=== PATIENT | female | born 1990 | race Caucasian/White ===

== ENCOUNTER 2017-08-05 06:00 | Inpatient (IN) ==
[2017-08-05] MEDS ORDERED: METHYLERGONOVINE 0.2 MG/ML INJECTION IM PRN (06:54)
[2017-08-05] MEDS ORDERED: MAG-AL + SIM ORAL LIQUID 30ml PO PRN ×2 (06:54→16:37)
[2017-08-05] MEDS ORDERED: ACETAMINOPHEN 500 MG TABLET PO PRN ×2 (06:54→16:37)
[2017-08-05] MEDS ORDERED: LIDOCAINE 1% (10mg/ml) 2mL INJ PF SDV ID PRN (06:54)
[2017-08-05] MEDS ORDERED: CALCIUM CARBONATE Chewable 500mg TABLET PO PRN ×2 (06:54→16:37)
[2017-08-05] MEDS ORDERED: CARBOPROST 250 MCG/ML INJECTION IM PRN (06:54)
[2017-08-05 07:13] VITALS: BMI 23.5
[2017-08-05] MEDS: LR 1,000 ML IV PRN ×2 (07:18→10:14)
[2017-08-05] MEDS ORDERED: OXYTOCIN DRIP 30 UNIT/500 ML ML IV PRN (07:30)
[2017-08-05] MEDS ORDERED: D5LR 1,000 ML IV PRN (07:30)
[2017-08-05] MEDS ORDERED: ONDANSETRON 4 MG/2 ML INJECTION IVP PRN (10:50)
[2017-08-05] MEDS ORDERED: ROPIVACAINE 1% 10MG/ML INJ 200 MG, SUFentanil 50 MCG in NS 100 ML EPI PRN (10:50)
[2017-08-05] MEDS ORDERED: DiphenhydrAMINE 50 MG/ML INJECTION IVP PRN (10:50)
[2017-08-05] MEDS ORDERED: NALOXONE 0.4 MG/ML INJECTION IVP PRN (10:50)
--- NOTE | 2017-08-05 10:50 | Anesthesia Preoperative Report ---
Anesthesia Epidural/Spinal Rec - Date and Time Date: 08/05/17 Procedure: Labor Epidural Plan: Epidural - Vital Signs Vital Signs: Temperature 97.5 F 08/05/17 07:00 Pulse Rate 93 08/05/17 07:00 Respiratory Rate 16 08/05/17 07:00 Blood Pressure 118/61 08/05/17 07:00 /Para: P:1 - Medictaions & Allergies Inpatient Medications: Current Medications Acetaminophen (Tylenol) 500 - 1,000 mg PO Q4H PRN PRN Reason: Pain Al Hydroxide/Mg Hydroxide (Maalox Plus) 30 ml PO Q3H PRN PRN Reason: Indigestion Calcium Carbonate (Tums) 500 - 1,000 mg PO Q2H PRN PRN Reason: Indigestion Carboprost Tromethamine (Hemabate) 250 mcg IM O PRN PRN Reason: .Downtime Lactated Ringer's (Lactated Ringers) 1,000 mls @ 999 mls/hr IV .Q1H1M PRN Last Admin: 08/05/17 10:14 Dose: 999 mls/hr Oxytocin (Pitocin Drip) 30 unit in 500 mls @ 2 mls/hr IV .Q24H PRN; Protocol PRN Reason: Induction/Augmentation Last Admin: 08/05/17 07:20 Dose: 2 mls/hr Dextrose/Lactated Ringer's (Dextrose 5%-Lactated Ringers) 1,000 mls @ 125 mls/ hr IV .Q8H PRN PRN Reason: Labor Last Admin: 08/05/17 07:21 Dose: 125 mls/hr Lidocaine HCl (Xylocaine-Mpf 1% Vial) 0.2 mg ID O PRN PRN Reason: IV Start Methylergonovine Maleate (Methergine) 0.2 mg IM O PRN Misoprostol (Cytotec) 800 mcg OH ONCE PRN Allergies/Adverse Reactions: Allergies Allergy/AdvReac Type Severity Reaction Status Date / Time Penicillins Allergy Unknown Verified 08/05/17 07:35 - Home Medications Home Medications: Home Medications Medication Instructions Recorded Confirmed Type Vit No.130/Iron/Folic 1 tab PO DAILY #0 tab 08/16/14 08/05/17 History [ Tablet] Iron 07/20/17 History - Medical History Respiratory: DENIES: Asthma, Sleep Apnea Cardiovascular: DENIES: Angina, Hypertension Gastrointestional: DENIES: Gastroesophageal Reflux Disease Neuro/Musculoskeletal: Denies: Neuromuscular Disorder Renal/Endocrine: DENIES: Diabetes Mellitus Type 2 Other History: DENIES: Anesthesia Reactions - Surgical History Anesthesia Reactions: None Hx Family Anesthesia Reaction: No History of Motion Sickness: No - Social History Second Hand Exposure: No Substance Use Type: does not use Hx Chewing Tobacco Use: No - Pertinent Findings Lab Data: CBC and BMP 08/05/17 07:10 - Physical Exam Respiratory Exam: lungs clear Cardiovascular Exam: regular rate and rhythm - Airway Assessment Mallampati Score: I TMD: 3 Fingerbreadths Neck Extension: good Overall Assessment: may be difficult mask vent, may be difficult intubation - ASA ASA Score: 2 - Discussion Discussion: Discussed risks/options/alternatives of anesthesia and questions answered. Patient consents. Nursing pain assessment noted. Anesthesia Discussion: family member Attestation Statement: Prior to the delivery of any anesthetic medication, I examined the patient, developed the plan, obtained the patient's consent and discussed the risk and benefits of the procedure with the patient/guardian.
[2017-08-05] MEDS ORDERED: DiphenhydrAMINE 25 MG CAPSULE PO PRN (16:37)
[2017-08-05] MEDS ORDERED: HYDROCORTISONE 2.5% CREAM 30gm RECTALLY PRN (16:37)
[2017-08-05] MEDS ORDERED: SALINE FLUSH 10ml SYRINGE IV PRN (16:37)
[2017-08-05] MEDS ORDERED: OXYTOCIN DRIP 30 UNIT/500 ML ML IV SCH (16:37)
--- NOTE | 2017-08-05 17:08 | Labor and Delivery Note ---
DATE 08/05/2017 Ms. Maza progressed very well in first stage of labor. At complete and +2 station, she pushed over the course of two contractions delivering the head in the OA presentation. There was no evidence of nuchal cord. Baby was bulb suctioned on the perineum prior to delivery. Baby was then further bulb suctioned after delivery and placed on mother's abdomen. After about two and a half, minutes the cord was doubly clamped. It was then cut by the baby's father Tolu. This is a liveborn female with Apgars of 8/9/9. She weighed 8 pounds, 2.6 ounces. In a few moments, the placenta delivered spontaneously, intact. It had a normal configuration and a normal-appearing three-vessel cord. There was a superficial left introitus laceration that was repaired with three stitches of 3-0 Vicryl. Total blood loss was approximately 300 mL. At the time of this dictation, mother and baby are doing well. FLACA
[2017-08-05] MEDS: IBUPROFEN 800 MG TABLET PO SCH (17:28)
[2017-08-05] MEDS: HYDROCODONE/APAP 5mg/325mg TABLET PO PRN (18:59)
--- NOTE | 2017-08-05 19:05 | Anesthesia Postoperative Note ---
- Date and Time Date: 08/05/17 Time: 19:04 - Status Patient Participated in Evaluation: Patient Participated in Person Vital Signs: Temperature 97.5 F 08/05/17 07:00 Pulse Rate 93 08/05/17 07:00 Respiratory Rate 16 08/05/17 07:00 Blood Pressure 118/61 08/05/17 07:00 Respiratory Function: Airway Patent Cardiovascular Function: Regular Pulse EKG: Sinus Rhythm Mental Status: Alert and Oriented Pain Intensity: 0 Hydration: Taking PO Fluids Complications During Recover: None Apparent - Follow-Up Instructions Instructions: Per Surgeon
[2017-08-06 01:35] VITALS: O2SAT 98
[2017-08-06] MEDS: HYDROCODONE/APAP 5mg/325mg TABLET PO PRN (05:40)
[2017-08-06 06:05] VITALS: RESP 16
[2017-08-06] MEDS: IBUPROFEN 800 MG TABLET PO SCH ×2 (06:10→12:13)
[2017-08-06] MEDS ORDERED: FERROUS SULFATE 324 MG TABLET PO SCH (08:00)
--- OUTSIDE RECORDS SUMMARY | 2017-08-06 08:40 | External Medical Summary | Continuity of Care Document ---
:1990 Author Organization [facility] Address [address] [place], [place] [address] Phone Allergies, Adverse Reactions, Alerts Substance Reaction Severity Status Penicillins Unknown Active Medications Medication Instructions Dosage Effective Dates Status Comments (start - stop) ferrous sulfate 325 take 1 tablet by ORAL 325 MG - Active mg (65 mg iron) route every day tablet VITAMINS take 1 by Oral route - Active (unknown strength) every day Problems Condition Effective Dates (start - stop) Clinical Status Low lying placenta NOS or w/out - hemorrhage, third trimester Encounter for suprvsn of normal - , third trimester 30 weeks gestation of - Placenta previa specified as w/o - hemorrhage, first trimester Encounter for suprvsn of normal - , first trimester 13 weeks gestation of - Vaginal Discharge or Lesion Other general symptoms and signs 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 (general) - (routine) w/o abn findings Pap Smear Screening, Cervix - Placenta previa specified as w/o - hemor, second trimester Encounter for suprvsn of normal - , second trimester 20 weeks gestation of - Placenta previa specified as w/o - hemor, second trimester Encounter for suprvsn of normal - , second trimester 17 weeks gestation of - Placenta previa specified as w/o - hemorrhage, third trimester Low lying placenta NOS or w/out - hemorrhage, third trimester 32 weeks gestation of - Pap Smear Screening, Cervix - Encounter for suprvsn of normal - , first trimester 9 weeks gestation of - Encounter for suprvsn of normal - , first trimester 13 weeks gestation of - Encounter for suprvsn of normal - , second trimester 20 weeks gestation of - Encounter for suprvsn of normal - , second trimester 24 weeks gestation of - Encounter for suprvsn of normal - , third trimester 28 weeks gestation of - Encounter for suprvsn of normal - , third trimester 32 weeks gestation of - Dysuria - Active Procedures Procedure Date OB Visit No Charge Results Test Name Date and Time Measure Units Reference Range Abnormal Flag Comments Unknown Advance Directives Directive Yes / No Effective Date File Name Unknown Encounters Encounter Practice Location Reason(s) Diagnoses Date Provider Care Team Description For Visit Members [facility] Encounter for Thompson In Womens suprvsn of normal 9-201 Bianka. Health ANDREA, , third 7 700 [address] [email or web address] weeks Medical 1522, gestation of [place], [place], 120, , [facility], tel:[phone] , [place]. tel:[phone] [facility] Placenta previa Jun-0 Thompson In Womens Ultrasound specified as w/o 9-201 Bianka. Health ANDREA, hemorrhage, third 7 700 PO Box trimesterLow Medical 1522, lying placenta [facility], NOS or w/out [place], hemorrhage, third 120, [id number], [email or web address] weeks [place], gestation of [place], tel:[phone] , [place]. tel:[phone] Ever [place] Low lying May- Thompson In Womens placenta NOS or 7-201 Bianka. Health [place], w/out hemorrhage, 7 700 PO Box third Medical 1522, trimesterEncounte [place], r for suprvsn of Buck [place], normal , 120, [id number], third [email or web address] [place], [place] weeks gestation [place], tel: [phone] , [place]. tel: [phone] [facility] Encounter for Judson-1 Thompson In Womens suprvsn of normal 3-201 Bianka. Health [place], , third 7 700 PO Box [email or web address] weeks Medical 1522, gestation of [facility], Buck [place], 120, [id number], [place], [place], tel:[phone] , [place]. tel: [phone] Ever [place] Reed-1 Thompson In Womens 9-201 Bianka. Health [place], 7 700 PO Box Medical 1522, [facility], Buck [place], 120, [id number], [place], tel:[phone] , [place]. tel: [phone] Ever [place] Encounter for Reed-1 Thompson In Womens suprvsn of normal 5-201 Bianka. Health [place], , second 7 700 PO Box [email or web address] weeks Medical 1522, gestation of [facility], Buck [place], 120, [id number], [place], [place], tel:[phone] , [place]. tel: [phone] Ever [place] Encounter for May-1 Thompson In Womens suprvsn of normal 8-201 Bianka. Health [place], , second 7 700 PO Box [email or web address] weeks Medical 1522, gestation of [facility], Buck [place], 120, [id number], [place], [place], tel:[phone] , [place]. tel:[phone] Ever [place] Placenta previa May-1 Thompson In Womens Ultrasound specified as w/o 8-201 Bianka. Health ANDREA, hemor, second 7 700 PO Box trimesterEncounte Medical 1522, [facility], normal , [place], second 120, [id number], [email or web address] weeks [place], [place] gestation of [place], tel:[phone] , [place]. tel: [phone] [facility] Placenta previa Apr-2 Thompson In Womens specified as w/o 8-201 Bianka. Health ANDREA, hemor, second 7 700 PO [facility] 1522, r for suprvsn of [facility], normal , [place], second 120, [id number], [email or web address] weeks [place], gestation of [place], tel:[phone] , [place]. tel: [phone] [facility] Placenta previa Mar-2 Thompson In Womens specified as w/o 7-201 Bianka. Health ANDREA, hemorrhage, first 7 700 [facility], r for suprvsn [facility], normal , [place], first [email or web address] 120, [id number], weeks gestation [place], [place], tel:[phone] , [place]. tel: [phone] [facility] Encounter for Mar-2 Thompson In Womens Ultrasound suprvsn of normal 7-201 Bianka. Health ANDREA, , first 7 700 PO Box [email or web address] weeks Medical 1522, gestation of [facility], Buck [place], 120, [id number], [place], [place], tel:[phone] , [place]. tel: [phone] [facility] Pap Smear Mar-0 Thompson In Womens Screening, 2-201 Bianka. Health ANDREA, CervixEncounter 7 700 PO Box for suprvsn [facility] 1522, normal , [facility], first trimester9 [place], weeks gestation 120, [id number], of [place], [place], tel:[phone] , [place]. tel: [phone] [facility] Vaginal Discharge Apr-2 Welch In Womens or LesionOther 8-201 Oral[place]. Health ANDREA, general symptoms 6 700 PO Box and signsEncntr Medical 1522, for plate corrector exam [facility], (general) [place], (routine) w/o abn 120, [id number], findingsPap Smear [facility] Screening, Cervix [place], tel: [phone] , [place]. tel: [phone] Ever [place] Aug- Thompson Referring In Womens 3-201 Bianka. Provider: Health ANDREA, 4 700 Bianka PO Box Medical Thompson L, 1522, Center [address], [facility] Medical [place], 120, [place] [id number], [place], [facility] 120, [place], Yaniv, tel:[phone] [place], , . [id number]. tel: tel: [phone] [facility] Jul- Thompson Referring In Womens 5-201 Bianka. Provider: Yesi MENDEZ, 4 700 Bianka PO Box Medical Thompson L, 1522, Center [address], [facility] [place], 120, [place] [id number], Yaniv, [facility] 120, Yaniv [place], tel:[phone] [place], , . [id number]. tel: tel: [phone] [facility] Jan- Welch In Womens 2-201 Oral[place]. Health ANDREA, 4 700 Box Medical 1522, [address], [facility], 120, [id number], [facility] [place], tel:[phone] , . tel: [phone] Family History Family Member Diagnosis Age At Onset No family history of Stroke No family history of Colon Cancer No family history of Diabetes No family history of Cardiovascular Disease Maternal Grandmother Ovarian Cancer No family history of Uterine Cancer No family history of Hypertension No family history of Epilepsy Mother Thyroid Disorder No family history of Lung Disease Mother Renal disease Sister Thyroid Disorder Sister Osteoporosis No family history of Breast Cancer Immunizations Vaccine Date Status Comments Influenza, seasonal, injectable, completed Source: New Immunization Record preservative free, 3 yrs or older Tdap completed Source: New Immunization Record Payers Payer name Insurance type Covered libertarian ID Authorization(s) Aetna CI [id number] Aetna CI [id number] Aetna CI [id number] Social History Type Description Quantity Date Captured Alcohol Use Details No Caffeine Use Details Unknown Tobacco Use Status Unknown Smoking Status Never smoker Vital Signs Date / Height Weight BMI Pulse Blood Temperature Respiratory Body Head BMI Time: Rate Pressure Rate Surface Circumference percentile Area 138.80 23.0 134/79 -2017 lbs 9 mm[Hg] 2:49 kg/m PM eter (2) Chief Complaint And Reason For Visit Unknown Chief Complaint And Reason For Visit Reason For Referral Reason For Referral Unknown Plan Of Care Date Type Action Status Appointment Yvette Maza BOOKED Future Order: Lab Order Pap Smear With HPV Reflex If ASCUS Ordered ([id number]) Future Order: Radiology Order Complete OB Ultrasound > 14 Ordered Weeks ([id number]) Future Order: Radiology Order Ultrasound, OB Limited ([id number]) Ordered Future Order: Radiology Order Nuchal Translucency ([id number]) Ordered Date Type Problem Goal Intervention Status Start Date Unknown. History Of Present Illness Encounter Date Complaint History Of Present Illness This patient has no known history of present illness Functional Status Encounter Date Functional Assessment Cognitive Assessment Unknown Medications Administered Medication Instructions Dosage Effective Dates (start - stop) Status Comments Drug Treatment Unknown Instructions Date Instruction Additional Information influenza vaccine environmental / work hazards travel use of any medications (including supplements, vitamins, herbs, OTC drugs) domestic violence seat belt use childbirth classes / hospital facilities hospital registration genetic testing HIV and other routine tests risk factors identified by history anticipated course of care nutrition and weight gain counseling, special diet toxoplasmosis precautions (cats / raw meat) sexual activity exercise indications for ultrasound
--- OUTSIDE RECORDS SUMMARY | 2017-08-06 08:40 | External Medical Summary | Continuity of Care Document ---
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 (general) - (routine) w/o abn findings Pap Smear Screening, Cervix - Placenta previa specified as w/o - hemor, second trimester Encounter for suprvsn of normal - , second trimester 20 weeks gestation of - Placenta previa specified as w/o - hemor, second trimester Encounter for suprvsn of normal - , second trimester 17 weeks gestation of - Low lying placenta NOS or w/out - hemorrhage, third trimester Encounter for suprvsn of normal - , third trimester 30 weeks gestation of - Pap Smear Screening, [...] second trimester 24 weeks gestation of - Dysuria - Active Procedures Procedure Date OB Visit No Charge Results Test Name Date and Time Measure Units Reference Range Abnormal Flag Comments Unknown Advance Directives Directive Yes / No Effective Date File Name Unknown Encounters Encounter Practice Location Reason(s) Diagnoses Date Provider Care Team Description For Visit Members Ever [place] Low lying Judson-2 Thompson In Womens placenta NOS or 7-201 Bianka. Health [place], w/out hemorrhage, 7 700 PO Box third Medical 1522, trimesterEncounte [facility] for suprvsn of [place], normal , 120, [id number], third [email or web address] [place], [place] weeks gestation [place], tel:[phone] , [place]. tel:[phone] Ever [place] Encounter for Judson-1 Thompson In Womens suprvsn of normal 3-201 Bianka. Health [place], , third 7 700 PO Box [email or web address] weeks Medical 1522, gestation of [facility] [place], 120, [id number], [place], [place], tel:[phone] , [place]. tel:[phone] Ever [place] Reed-1 Thompson In Womens 9-201 Bianka. Health [place], 7 700 PO Box Medical 1522, [facility], [place], 120, [id number], [place], [place], tel:[phone] , [place]. tel:[phone] Ever [place] Encounter for Reed-1 Thompson In Womens suprvsn of normal 5-201 Bianka. Health [place], , second 7 700 PO Box [email or web address] weeks Medical 1522, gestation of [facility] [place], 120, [id number], [place], tel:[phone] , [place]. tel: [phone] [facility] Encounter for May-1 Thompson In Womens suprvsn of normal 8-201 Bianka. Health ANDREA, , second 7 700 PO Box [email or web address] weeks Medical 1522, gestation of [facility], [place], 120, [id number], [place], tel:[phone] , [place]. tel: [phone] [facility] Placenta previa May-1 Thompson In Womens Ultrasound specified as w/o 8-201 Bianka. Health ANDREA hemor, second 7 700 PO Box trimesterEncherrick campuse Medical 1522, r for suprvsn of [facility], normal , [place], second 120, [id number], [email or web address] weeks [place], [place] gestation of [place], tel:[phone] , [place]. tel: [phone] [facility] Placenta previa Apr-2 Thompson In Womens specified as w/o 8-201 Bianka. Health ANDREA hemor, second 7 700 PO Box trimesterEncherrick campuse Medical 1522, r for suprvsn of [facility], normal , [place], second 120, [id number], [email or web address] weeks [place], [place] gestation of [place], tel:[phone] , [place]. tel: [phone] [facility] Placenta previa Mar-2 Thompson In Womens specified as w/o 7-201 Bianka. Health ANDREA, hemorrhage, first 7 700 PO Box trimesterEncherrick campuse Medical 1522, r for suprvsn of [facility], normal , [place], first [email or web address] 120, [id number], weeks gestation [place], [place] of [place], tel:[phone] , [place]. tel: [phone] [facility] Encounter for Mar-2 Thompson In Womens Ultrasound suprvsn of normal 7-201 Bianka. Health [place], , first 7 700 PO Box [email or web address] weeks Medical 1522, gestation of [facility], [place], 120, [id number], [place], [place], tel: [phone] , [place]. tel: [phone] Ever [place] Pap Smear Mar-0 Thompson In Womens Screening, 2-201 Bianka. Health ANDREA, CervixEncounter 7 700 PO Box for suprvsn of Medical 1522, normal , [facility], first trimester9 [place], weeks gestation 120, [id number], of [place], [place], tel:[phone] , [place]. tel: [phone] Ever [place] Vaginal Discharge Apr-2 Yuri In Womens or LesionOther 8-201 Oralia. Health ANDREA, general symptoms 6 700 PO Box and signsEncntr Medical 1522, for obstetrics gynecology md exam [facility], (general) [place], (routine) w/o abn 120, , findingsPap Smear [facility] Screening, Cervix [place], tel:[phone] , [place]. tel: [phone] Ever [place] Oct-1 Thompson Referring In Womens 3-201 Bianka. Provider: Yesi MENDEZ, 4 700 Bianka PO Box Medical Thompson L, 1522, Center [address], [facility] [place], 120, Center [id number], Yaniv [facility] 120, [place] Yaniv [place], tel: [phone] [place], , [place]. [id number]. tel: tel: [phone] Ever [place] Sep-1 Thompson Referring In Womens 5-201 Bianka. Provider: Yesi MENDEZ, 4 700 Bianka PO Box Medical Thompson L, 1522, Center [address], [facility] [place], 120, Center [id number], Yaniv [facility] 120, [place] Yaniv [place], tel:[phone] [place], , [place]. [id number]. tel: tel: [phone] Ever [place] Mar-1 Welch In Womens 2-201 Oral[place]. Health ANDREA, 4 700 PO Box Medical [address] [address] [place], 120, [id number], [facility] [place], tel:[phone] , [place]. tel: [phone] Family History Family Member Diagnosis Age At [...] Record Payers Payer name Insurance type Covered green party ID Authorization(s) Aetna CI [id number] Aetna CI [id number] Aetna CI [id number] Social History Type Description Quantity Date Captured Alcohol Use Details No Caffeine Use Details Unknown Tobacco Use Status Unknown Smoking Status Never smoker Vital Signs Date / Height Weight BMI Pulse Blood Temperature Respiratory Body Head BMI Time: Rate Pressure Rate Surface Circumference percentile Area 0 4:24 kg/m PM eter (2) 137.70 22.9 122/66 2017 lbs 1 mm[Hg] 4:25 kg/m PM eter (2) Chief Complaint And Reason For Visit Unknown Chief Complaint And Reason For Visit Reason For Referral Reason For Referral Unknown Plan Of Care Date Type Action Status Appointment Yvette Maza BOOKED Appointment Yvette Maza BOOKED Future Order: Lab Order Pap Smear With HPV Reflex If ASCUS Ordered ([id number]) Future Order: Radiology Order Complete OB Ultrasound > 14 Ordered Weeks ([id number]) Future Order: Radiology Order Nuchal Translucency ([id number]) Ordered Date Type Problem Goal Intervention Status [...]
--- OUTSIDE RECORDS SUMMARY | 2017-08-06 08:40 | External Medical Summary | Summary of Care ---
:1990 Author Name Carmen Welch D.O. Address [address], [place] [address] Care Team Providers Name Role Phone No Assigned PCP-Pt Confirmed Primary Care Provider Unavailable Unavailable Unavailable Unavailable Functional Status Functional Status Health Issues Name Dates Details Functional status health issues are not documented Status: Cognitive Status Health Issues Name Dates Details Cognitive status health issues are not documented Status: Problems Name Dates Details Toe pain (729.5, M79.676) Status: Active Injury of right great toe (959.7, S99.921A) Status: Active Great toe pain, right (729.5, M79.674) Status: Active Subungual hematoma of great toe of right foot (924.3, S90.211A) Status: Active Medications Name Dates Details No Reported Medications Refills: 0 Active Allergies and Adverse Reactions Name Dates Details No Known Drug Allergies Status: Active Procedures Procedure Dates Details XRay TOES-Right Ordered:13-Feb-2016 Immunization Name Dates Details Immunizations not documented Social History Smoking StatusUnknown if ever smoked Vital Signs Date Test Result Details 13-Feb-2016 09:32 BP Systolic 100 mm[Hg] Status: BP Diastolic 56 mm[Hg] Status: Temperature 98.6 f Status: Heart Rate 100 /min Status: Weight 112 lb Status: O2 SAT 97 % Status: Results Date Description Value Details Results not documented Plan of Care Planned Observations Name Dates Details Planned Goals not documented Goal Instructions Instructions not documented Encounters Appointment; Gucci Welch On 13-Feb-2016 Encounter Diagnosis: Problem not documented 09:25
--- OUTSIDE RECORDS SUMMARY | 2017-08-06 08:40 | External Medical Summary | Continuity of Care Document ---
:1990 Author Organization [facility] Address [address] [place], [place] [id number] Phone Allergies, Adverse Reactions, Alerts Substance Reaction Severity Status Penicillins Unknown Active Medications Medication Instructions Dosage Effective Dates Status Comments (start - stop) RANITIDINE HCL take 1 capsule by oral - Active (unknown strength) route 2 times every day ferrous sulfate 325 take 1 tablet by ORAL 325 MG - Active mg (65 mg iron) route every day tablet VITAMINS take 1 by Oral route - Active (unknown strength) every day Problems Condition Effective Dates (start - stop) Clinical Status Encounter for suprvsn of normal - , third trimester 34 weeks gestation of - Placenta previa specified as w/o - hemorrhage, first trimester Encounter for suprvsn of normal - , first trimester 13 weeks gestation of - Vaginal Discharge or Lesion Pap Smear Screening, Cervix - Other general symptoms and signs Encntr for shampooer exam (general) - (routine) w/o abn findings Placenta previa specified as w/o - hemor, second trimester Encounter for suprvsn of normal - , second trimester 20 weeks gestation of - Placenta previa specified as w/o - hemor, second trimester 17 weeks gestation of - Encounter for suprvsn of normal - , second trimester Placenta previa specified as w/o - hemorrhage, third trimester Low lying placenta NOS or w/out - hemorrhage, third trimester 32 weeks gestation of - Encounter for suprvsn of normal - , first trimester Pap Smear Screening, Cervix - 9 weeks gestation of - Encounter for suprvsn of normal - , first trimester 13 weeks gestation of - Encounter for suprvsn of normal - , second trimester 20 weeks gestation of - Low lying placenta NOS or w/out - hemorrhage, third trimester 30 weeks gestation of - Encounter for suprvsn of normal - , third trimester 24 weeks gestation of - Encounter for suprvsn of normal - , second trimester Encounter for suprvsn of normal - , third trimester 28 weeks gestation of - Encounter for suprvsn of normal - , third trimester 32 weeks gestation of - Encounter for suprvsn of normal - , third trimester Encounter for screening of - mother 36 weeks gestation of - Encounter for suprvsn of normal - , third trimester 37 weeks gestation of - Dysuria - Active Procedures Procedure Date OB Visit No Charge Results Test Name Date and Time Measure Units Reference Range Abnormal Flag Comments Unknown Advance Directives Directive Yes / No Effective Date File Name Unknown Encounters Encounter Practice Location Reason(s) Diagnoses Date Provider Care Team Description For Visit Members Ever [place] Encounter for Thompson Referring In Womens suprvsn of normal 2-201 Bianka. Provider: Health [place], , third 7 700 Bianka PO Box [email or web address] weeks Taylor Mackay L, 1522, gestation of Center [address] [place], , [facility] MD, 120, [place] [id number], Yaniv [facility] 120, [place] Yaniv [place], tel:[phone] [place], [id number] , [place]. [id number]. tel: tel: [phone] Ever [place] Encounter for Sep-0 Thompson In Womens suprvsn of normal 7-201 Bianka. Health [place], , third 7 700 PO Box trimesterEncounte Medical 1522, r for [facility], screening of Buck Sant[place], [email or web address] weeks 120, , gestation of [facility] [place], tel:[phone] , [place]. tel: [phone] Ever [place] Encounter for Aug-2 Thompson In Womens suprvsn of normal 3-201 Bianka. Health [place], , third 7 700 PO Box [email or web address] weeks Medical 1522, gestation of [facility], Buck Sant[place], 120, , [facility] [place], tel:[phone] , [place]. tel: [phone] Ever [place] Encounter for Aug-0 Thompson In Womens suprvsn of normal 9-201 Bianka. Health [place], , third 7 700 PO Box [id number] weeks Medical 1522, gestation of [facility], Buck Santana, 120, , [place], tel:[phone] , [place]. tel: [phone] Ever [place] Placenta previa Aug-0 Thompson In Womens Ultrasound specified as w/o 9-201 Bianka. Health [place], hemorrhage, third 7 700 PO Box trimesterLow Medical 1522, lying placenta [facility], NOS or w/out [place], hemorrhage, third 120, , [email or web address] weeks [facility] gestation of [place], tel: [phone] [address] , [place]. tel: [phone] Ever [place] Low lying Judson-2 Thompson In Womens placenta NOS or 7-201 Bianka. Health [place], w/out hemorrhage, 7 700 PO Box third [email or web address] Medical 1522, weeks gestation [facility], of Buck Santana, pregnancyEncounte 120, , r for suprvsn of [place], normal , [place], tel: third trimester [phone] , [place]. tel: [phone] Ever [place] Encounter for Judson-1 Thompson In Womens suprvsn of normal 3-201 Bianka. Health ANDREA, , third 7 700 PO Box [email or web address] weeks Medical 1522, gestation of [facility], Buck Santana, 120, [id number], [place], tel:[phone] , [place]. tel: [phone] Ever [place] Reed-1 Thompson In Womens 9-201 Bianka. Health ANDREA, 7 700 PO Box Medical 1522, [facility], [place], 120, [id number], [place], tel:[phone] , [place]. tel: [phone] Ever [place] 24 weeks Reed-1 Thompson In Womens gestation of 5-201 Bianka. Health ANDREA, pregnancyEncounte 7 700 PO Box r for suprvsn of [facility] 1522, normal , [facility], second trimester Buck Santana, 120, , [place], [place], tel:[phone] , [place]. tel: [phone] Ever [place] Encounter for May-1 Thompson In Womens suprvsn of normal 8-201 Bianka. Health ANDREA, , second 7 700 PO Box [email or web address] weeks Medical 1522, gestation of [facility], Buck Santana, 120, [id number], [place], tel:[phone] , [place]. tel: [phone] Ever [place] Placenta previa May-1 Thompson In Womens Ultrasound specified as w/o 8-201 Bianka. Health ANDREA hemor, second 7 700 PO Box trimesterEncounte Medical 1522, r for suprvsn of [facility], normal , Buck Santana, second 120, [id number], [email or web address] weeks [place], gestation of [place], tel:[phone] , [place]. tel: [phone] Ever [place] Placenta previa Apr-2 Thompson In Womens specified as w/o 8-201 Bianka. Health ANDREA hemor, second 7 700 PO Box [email or web address] weeks Medical 1522, gestation of [facility] pregnancyEncounte Buck [place]a, r for suprvsn of 120, [id number], normal , Yaniv, second trimester [place], tel:[phone] , [place]. tel:[phone] Associates Yaniv Placenta previa Mar-2 Thompson In Womens specified as w/o 7-201 Bianka. Health ANDREA, hemorrhage, first 7 700 PO Box trimesterEncounte Medical 1522, r for suprvsn of [facility], normal , Buck [place]ana, first [email or web address] 120, [id number], weeks gestation [place], [place], tel:[phone] , [place]. tel:[phone] Associates Yaniv Encounter for Mar-2 Thompson In Womens Ultrasound suprvsn of normal 7-201 Bianka. Health ANDREA, , first 7 700 PO Box [email or web address] weeks Medical 1522, gestation of [facility], Buck Sant[place], 120, [id number], [place], tel:[phone] , [place]. tel: [phone] Associates Yaniv Encounter for Mar-0 Thompson In Womens suprvsn of normal 2-201 Bianka. Health ANDREA, , first 7 700 PO Box trimesterPap Medical 1522, Smear Screening, [facility], Cervix9 weeks Buck [place], gestation of 120, [id number], [place], tel:[phone] , [place]. tel: [phone] Ever [place] Vaginal Discharge Apr-2 Welch In Womens or LesionPap 8-201 Oralia. Health PA, Smear Screening, 6 700 PO Box CervixOther Medical 1522, general symptoms [facility], and signsEncntr Buck [place], for shampooer exam 120, , (general) Yaniv, (routine) w/o abn [place], tel:[phone] , [place]. tel: [phone] Ever [place] Oct-1 Thompson Referring In Womens 3-201 Bianka. Provider: Health [place], 4 700 Bianka PO Box Medical Thompson L, 1522, Center [address], [facility] [place], 120, Center [id number], Yaniv, [facility] 120, [place], Yaniv, tel:[phone] [place], , [place]. [id number]. tel: tel:[phone] Associates Yaniv Sep- [facility] Referring In Womens 5-201 Bianka. Provider: Health ANDREA, 4 700 [facility] Box Medical Thompson L, 1522, Center [address], [facility] [place], 120, Center [id number], Yaniv, [facility] 120, [place], Yaniv, tel:[phone] MD, , . [id number]. tel: tel:[phone] Associates Yaniv Mar- Welch In Womens 2-201 Oralia. Health ANDREA, 4 700 [facility] Medical 1522, [place] Dr Jose, [facility] [place], 120, [id number], [place], [place], tel:[phone] , [place]. tel: [phone] Family History Family Member Diagnosis Age At [...] Breast Cancer Immunizations Vaccine Date Status Comments Tdap completed Source: New Immunization Record Influenza, seasonal, injectable, completed Source: New Immunization Record preservative free, 3 yrs or older Tdap completed Source: New Immunization Record Payers Payer name Insurance type Covered green party ID Authorization(s) Aetna CI [id number] Aetna CI [id number] Aetna CI [id number] Aetna CI [id number] Social History Type Description Quantity Date Captured Alcohol Use Details No Caffeine Use Details Unknown Tobacco Use Status Unknown Smoking Status Never smoker Vital Signs Date / Height Weight BMI Pulse Blood Temperature Respiratory Body Head BMI Time: Rate Pressure Rate Surface Circumference percentile Area Unknown Chief Complaint And Reason For Visit Unknown Chief Complaint And Reason For Visit Reason For Referral Reason For Referral Unknown Plan Of Care Date Type Action Status Appointment Yvette Maza BOOKED Appointment Link Yvette BOOKED Future Order: Lab Order Pap Smear With HPV Reflex If ASCUS Ordered ([id number]) Future Order: Radiology Order Complete OB Ultrasound > 14 Ordered Weeks ([id number]) Future Order: Radiology Order Ultrasound, OB Limited ([id number]) Ordered Future Order: Radiology Order Nuchal Translucency ([id number]) Ordered Date Type Problem Goal Intervention Status [...]
--- OUTSIDE RECORDS SUMMARY | 2017-08-06 08:41 | External Medical Summary | Summary of Care ---
:1990 Author Name Carmen Welch D.O. Address [address], [place] [id number] Care Team Providers Name Role Phone No Assigned PCP-Pt Confirmed Primary Care Provider Unavailable Functional Status Functional Status Health Issues Name Dates Details Functional status health issues are not documented Status: Cognitive Status Health Issues Name Dates Details Cognitive status health issues are not documented Status: Problems Name Dates Details Active medical history not documented Status: Medications Name Dates Details Medication not documented Allergies and Adverse Reactions Name Dates Details Allergy history not documented Status: Procedures Procedure Dates Details Procedures not documented Immunization Name Dates Details Immunizations not documented Social History Smoking StatusUnknown if ever smoked Vital Signs Date Test Result Details No Known Vitals to report Results Date Description Value Details Results not documented Plan of Care Planned Observations Name Dates Details Planned Goals not documented Goal Instructions Instructions not documented Encounters Appointment; Gucci Welch On 13-Feb-2016 Encounter Diagnosis: Problem not documented 09:25
--- OUTSIDE RECORDS SUMMARY | 2017-08-06 08:41 | External Medical Summary | Continuity of Care Document ---
:1990 Author Organization [facility] Address [address] [place], [place] [id number] Phone Allergies, Adverse Reactions, Alerts Substance Reaction [...] Effective Dates (start - stop) Clinical Status Placenta previa specified as w/o - hemorrhage, third trimester Low lying placenta NOS or w/out - hemorrhage, third trimester 32 weeks gestation of - Placenta previa specified as w/o - hemorrhage, first trimester Encounter for suprvsn of normal - , first trimester 13 weeks gestation of - Encounter for suprvsn of normal - , third trimester 34 weeks gestation of - Vaginal Discharge or Lesion Pap Smear Screening, Cervix - Other general symptoms and signs 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 Health [place], , third 7 700 PO Box [email or web address] weeks Medical 1522, gestation of [facility] Buck [place], 120, [id number], [facility] [place], tel: [phone] , [place]. tel: [phone] Ever [place] Encounter for Aug-0 Thompson In Womens suprvsn of normal 9-201 Bianka. Health [place], , third 7 700 PO Box [email or web address] weeks Medical 1522, gestation of [facility] Buck [place], 120, [id number], [facility] [place], tel: [phone] , [place]. tel: [phone] Ever [place] Placenta previa Aug-0 Thompson In Womens Ultrasound specified as w/o 9-201 Bianka. Health [place], hemorrhage, third 7 700 PO Box trimesterLow Medical 1522, lying placenta [facility], [facility] or w/out [place], hemorrhage, third 120, [id number], [email or web address] weeks [place], gestation of [place], tel:+ [phone] [address] , [place]. tel: [phone] Associates Yaniv Low lying Judson-2 Thompson In Womens placenta NOS or 7-201 Bianka. Health [place], w/out hemorrhage, 7 700 PO Box third Medical 1522, weeks gestation [facility], of Buck Sant[place], pregnancyEncounte 120, [id number], r for suprvsn of [place], normal , [place], tel:+ third trimester [phone] [address] , [place]. tel: [phone] Ever [place] Encounter for Judson-1 Thompson In Womens suprvsn of normal 3-201 Bianka. Health [place], , third 7 700 PO Box [email or web address] weeks Medical 1522, gestation of [facility], Buck Sant[place], 120, [id number], [place], tel:[phone] , [place]. tel: [phone] Ever [place] Reed-1 Thompson In Womens 9-201 Bianka. Health ANDREA, 7 700 PO Box Medical 1522, [place], Buck Sant[place], 120, [id number], [place], [place], tel:[phone] , [place]. tel: [phone] Ever [place] 24 weeks Reed-1 Thompson In Womens gestation of 5-201 Bianka. Health [place], pregnancyEncounte 7 700 PO Box r for suprvsn of Medical 1522, normal , [facility], second trimester Buck [place], 120, [id number], [place], tel:[phone] , [place]. tel: [phone] Ever [place] Encounter for May-1 Thompson In Womens suprvsn of normal 8-201 Bianka. Health [place], , second 7 700 PO Box [email or web address] weeks Medical 1522, gestation of [facility], Buck [place], 120, [id number], [place], [place], tel:[phone] , [place]. tel: [phone] Associates Yaniv Placenta previa May-1 Thompson In Womens Ultrasound specified as w/o 8-201 Bianka. Health ANDREA, hemor, second 7 700 PO [facility] 1522, r for suprvsn of [facility], normal , [place], second 120, [id number], [email or web address] weeks [place], [place] gestation of [place], tel:+ [phone] [address] , [place]. tel: [phone] Associates Yaniv Placenta previa Apr-2 Thompson In Womens specified as w/o 8-201 Bianka. Health ANDREA, hemor, second 7 700 PO Box [email or web address] weeks Medical 1522, gestation of [facility] pregnancyEncounte Buck [place], r for suprvsn of 120, [id number], normal , [place], second trimester [place], tel:[phone] , [place]. tel: [phone] Associates Yaniv Placenta previa Mar-2 Thompson In Womens specified as w/o 7-201 Bianka. Health ANDREA, hemorrhage, first 7 700 PO Box [facility] 1522, r for suprvsn of [facility], normal , Buck [place], first [email or web address] 120, [id number], weeks gestation [place], [place] of [place], tel:[phone] , [place]. tel: [phone] Associates Yaniv Encounter for Mar-2 Thompson In Womens Ultrasound suprvsn of normal 7-201 Bianka. Health [place], , first 7 700 PO Box [email or web address] weeks Medical 1522, gestation of [facility], Buck Sant[place], 120, [id number], [place], tel:[phone] , [place]. tel: [phone] Associates Yaniv Encounter for Mar-0 Thompson In Womens suprvsn of normal 2-201 Bianka. Health [place], , first 7 700 PO Box trimesterPap Medical 1522, Smear Screening, [facility], Cervix9 weeks [place], gestation of 120, , [place], [place], tel: [phone] , [place]. tel: [phone] Associates Yaniv Vaginal Discharge Apr-2 Welch In Womens or LesionPap 8-201 Oralia. Health PA, Smear Screening, 6 700 PO Box CervixOther Medical 1522, general symptoms [facility] [place], and signsEncntr , [facility], for newspaper editor exam 120, , (general) [place], (routine) w/o abn [place], tel: [phone] , [place]. tel: [phone] Associates Yaniv Oct- Thompson Referring In Womens 3-201 Bianka. Provider: Yesi MENDEZ, 4 700 Bianka PO Box Medical [facility] L, 1522, Center [facility] Dr Jose, [facility], 120, [place] , Yaniv [place] [address], Yaniv [place], tel:[phone] [place], , . [id number]. tel: tel: [phone] Associates Yaniv Sep-1 Thompson Referring In Womens 5-201 Bianka. Provider: Yesi MENDEZ, 4 700 Bianka PO Box Medical Thompson L, 1522, Center [facility] Dr Jose, [facility], 120, [place] [id number], Yaniv [place] [address], Yaniv [place], tel:[phone] [place], , . [id number]. tel: tel: [phone] Associates Yaniv Mar-1 Yuri In Womens 2-201 Oralia. [facility] ANDREA, 4 700 PO [facility] Medical 1522, [place] [address] Jose, [facility] [place], 120, [id number], [place], [place], tel:[phone] , [place]. tel: [phone] Family History Family Member Diagnosis Age At [...] type Covered libertarian ID Authorization(s) A[employer] CI [id number] Aetna CI [id number] A[employer]na CI [id number] Social History Type Description Quantity Date Captured Unknown Vital Signs Date / Height Weight BMI Pulse Blood Temperature Respiratory Body Head BMI Time: Rate Pressure Rate Surface Circumference percentile Area Unknown Chief Complaint And Reason For Visit Unknown Chief Complaint And Reason For Visit Reason For Referral Reason For Referral Unknown Plan Of Care Date Type Action Status Appointment [place] Yvette BOOKED Appointment [place] Yvette BOOKED Appointment [place], Yvette BOOKED Appointment [place], Yvette BOOKED Future Order: Radiology Order Ultrasound, OB Limited ([id number]) Ordered Future Order: Lab Order Pap Smear With HPV Reflex If ASCUS Ordered ([id number]) Future Order: Radiology Order Complete OB Ultrasound > 14 Ordered Weeks ([id number]) Future Order: Radiology Order Nuchal Translucency ([id number]) Ordered Date Type Problem Goal Intervention Status [...]
--- OUTSIDE RECORDS SUMMARY | 2017-08-06 08:41 | External Medical Summary | Continuity of Care Document ---
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 Health [place], , third 7 700 [address] [email or web address] weeks Medical 1522, gestation of [facility] Buck Santana, 120, [id number], [facility] [place], tel:[phone] [address] , [place]. tel: [phone] Ever [place] Encounter for Aug-0 Thompson In Womens suprvsn of normal 9-201 Bianka. Health [place], , third 7 700 [address] [email or web address] weeks Medical 1522, gestation of [facility] Buck Santana, 120, [id number], [place], [place], tel:[phone] , [place]. tel: [phone] Ever [place] Placenta previa Aug-0 Thompson In Womens Ultrasound specified as w/o 9-201 Bianka. Health [place], hemorrhage, third 7 700 PO Box trimesterLow Medical 1522, lying placenta [facility], [facility] or w/out Buck Santana, hemorrhage, third 120, [id number], [email or web address] weeks [place], gestation of [place], tel:+ [phone] , [place]. tel: [phone] Associates [facility] Low lying Judson-2 Thompson In Womens placenta NOS or 7-201 Bianka. Health [place], w/out hemorrhage, 7 700 PO Box third [email or web address] Medical 1522, weeks gestation [facility], of Buck Santana, pregnancyEncounte 120, , r for suprvsn of [place], normal , [place], tel:+ third trimester [phone] [address] , [place]. tel: [phone] Associates Yaniv Encounter for Judson-1 Thompson In Womens suprvsn of normal 3-201 Bianka. Health [place], , third 7 700 PO Box [email or web address] weeks Medical 1522, gestation of [facility], Buck Santana, 120, [id number], [place], [place], tel:[phone] , [place]. tel: [phone] Associates [facility] Reed-1 Thompson In Womens 9-201 Bianka. Health ANDREA, 7 700 PO Box Medical 1522, [facility], Buck Santana, 120, [id number], [place], [place], tel:[phone] , [place]. tel: [phone] Ever [place] 24 weeks Reed-1 Thompson In Womens gestation of 5-201 Bianka. Health [place], pregnancyEncounte 7 700 PO Box r for suprvsn of Medical 1522, normal , [facility], second trimester Buck Santana, 120, [id number], [place], [place], tel:[phone] , [place]. tel:[phone] Associates [facility] Encounter for May-1 Thompson In Womens suprvsn of normal 8-201 Bianka. Health [place], , second 7 700 [address] Box [email or web address] weeks Medical 1522, gestation of [facility], Buck Santana, 120, [id number], [place], tel:+ [phone] , [place]. tel:[phone] Associates [facility] Placenta previa May-1 Thompson In Womens Ultrasound specified as w/o 8-201 Bianka. Health ANDREA, hemor, second 7 700 PO Box trimesterEncpark [facility]itarium[facility] Medical 1522, r for suprvsn of [facility], normal , Buck Santana, second 120, [id number], [email or web address] weeks [place], [place] gestation of [place], tel:+ [phone] [address] , [place]. tel:[phone] Associates [facility] Placenta previa Apr-2 Thompson In Womens specified as w/o 8-201 Bianka. Health ANDREA hemor, second 7 700 PO Box [email or web address] weeks Medical 1522, gestation of [facility] pregnancyEncounte Buck [place]ana, r for suprvsn of 120, [id number], normal , [place], second trimester [place], tel:[phone] , [place]. tel: [phone] Associates [facility] Placenta previa Mar-2 Thompson In Womens specified as w/o 7-201 Bianka. Health ANDREA, hemorrhage, first 7 700 PO Box trimesterEncpark sanitarium[facility] Medical 1522, r for suprvsn of [facility], normal , Buck Santana, first [email or web address] 120, [id number], weeks gestation [place], [place] of [place], tel:[phone] , [place]. tel: [phone] Associates [facility] Encounter for Mar-2 Thompson In Womens Ultrasound suprvsn of normal 7-201 Bianka. Health [place], , first 7 700 PO Box [email or web address] weeks Medical 1522, gestation of [facility], Buck Santana, 120, [id number], [place], tel:[phone] , [place]. tel:[phone] Associates [facility] Encounter for Mar-0 Thompson In Womens suprvsn of normal 2-201 Bianka. Health ANDREA, , first 7 700 PO Box trimesterPap Medical 1522, Smear Screening, [facility], Cervix9 weeks Buck [place], gestation of 120, , [place], [place], tel:[phone] , [place]. tel: [phone] Associates [facility] Vaginal Discharge Apr-2 Welch In Womens or LesionPap 8-201 Oralia. 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 tel: [phone] Associates [facility] Aug- Thompson Referring In Womens 3-201 Bianka. Provider: Yesi MENDEZ, 4 700 Bianka [facility] Medical [facility] L, 1522, Center [facility] Dr Jose, [facility], 120, [place] , Yaniv [place] [address], [place], Yaniv, tel:[phone] [place], , [place]. [id number]. tel: tel: [phone] [facility] Sep- Thompson Referring In Womens 5-201 Bianka. Provider: Yesi MENDEZ, 4 700 Bianka [facility] Medical [facility] L, 1522, Center [facility] Dr Jose, [facility] [place], 120, [place] [id number], Yaniv [facility] 120, Yaniv [place], tel:[phone] [place], , . [id number]. tel: tel: [phone] Associates [facility] Mar-1 Welch In Womens 2-201 Oralia. Health ANDREA, 4 700 [facility] Medical 1522, [place] Dr Jose, [facility] [place], 120, [id number], [place], [place], tel:[phone] , [place]. tel: [phone] Family History Family Member Diagnosis Age At [...] Record Payers Payer name Insurance type Covered democrat ID Authorization(s) [employer] CI [id number] A[employer] CI [id number] [employer] CI [id number] Social History Type Description Quantity Date Captured Alcohol Use Details No Caffeine Use Details Unknown Tobacco Use Status Unknown Smoking Status Never smoker Vital Signs Date / Height Weight BMI Pulse Blood Temperature Respiratory Body Head BMI Time: Rate Pressure Rate Surface Circumference percentile Area 142.40 23.6 126/72 2017 lbs 9 mm[Hg] 11:01 kg/m AM latoyaer (2) Chief Complaint And Reason For Visit Unknown Chief Complaint And Reason For Visit Reason For Referral Reason For Referral Unknown Plan Of Care Date Type Action Status Appointment Yvette Maza BOOKED Appointment Yvette Maza BOOKED Appointment Mangoight Yvette BOOKED Appointment Link Yvette BOOKED Future Order: Lab Order Pap Smear With HPV Reflex If ASCUS Ordered ([id number]) Future Order: Radiology Order Complete OB Ultrasound > 14 Ordered Weeks ([id number]) Future Order: Radiology Order Ultrasound, OB Limited ([id number]) Ordered Future Order: Radiology Order Nuchal Translucency ([id number]) Ordered Date Type Problem Goal Intervention Status [...]
--- OUTSIDE RECORDS SUMMARY | 2017-08-06 08:41 | External Medical Summary | Continuity of Care Document ---
:1990 Author Organization [facility] Allergies Active Description Code Type Severity Reaction Onset Reported/ Identified Relationship Clinical to Patient Status Yes Penicillins 476 3 N/A N/A Yes No Known F0019 Drug Unknown N/A 11/30/2013 Drug 95605 Aller Allergies gy Medications Medication Packaging Start Date Stop Date Route Dosage Sig Tablet 03/09/2016 03/15/2016 FLAGYL take 1 tablet by ORAL route 2 times every day for 7 days Tablet 05/06/2017 FERROUS SULFATE take 1 tablet by ORAL route every day Problems Date Dx Attending Type Code Diagnosis Diagnosed By Coded 11/30/2013 ABEL RICO MD Ot 786.59 CHEST PAIN NEC P 11/30/2013 ABEL RICO MD Ot 922.1 CONTUSION OF CHEST P WALL 11/30/2013 ABEL RICO MD Ot 923.11 CONTUSION OF ELBOW P 11/30/2013 ABEL RICO MD Ot 923.20 CONTUSION OF HAND(S) P 11/30/2013 ABEL RICO MD Ot E000.9 UNSPECIFIED EXTERNAL P CAUSE STATUS 11/30/2013 BAEL RICO MD Ot E030 UNSPECIFIED ACTIVITY P 11/30/2013 ABEL RICO MD Ot 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 11/30/2013 ABEL RICO MD Ot E849.[address]/HIGHWAY 10/23/2014 Ot V71.89 03/05/2015 Ot V71.89 03/12/2015 Ot V71.89 07/01/2016 Ot V71.89 OBSERVE SUSPECT OTH SPECIFIED CONDITIONS 07/06/2016 Ot V71.89 OBSERVE SUSPECT OTH SPECIFIED CONDITIONS 08/03/2016 Ot V71.89 OBSERVE SUSPECT OTH SPECIFIED CONDITIONS 08/03/2016 Ot V71.89 OBSERVE SUSPECT OTH SPECIFIED CONDITIONS 02/01/2017 Bianka Mackay Z34.81 Encounter for Carmen gilbert of normal , first trimester 02/01/2017 Thompson, Bianka W Z3A.13 13 weeks gestation L of 03/24/2017 Ot V71.89 OBSERVE SUSPECT OTH SPECIFIED CONDITIONS 03/25/2017 Bianka Mackay W O44.02 Placenta previa L specified as w/o hemor, second trimester 03/25/2017 Bianka Mackay W Z34.82 Encounter for L suprvsn of normal , second trimester 03/25/2017 Darell Mackaya W Z3A.20 20 weeks gestation L of 03/26/2017 JOSEPH MENDEZ [facility] Ot H10.89 OTHER CONJUNCTIVITIS D 06/16/2017 Darell Mackaya W O44.03 Placenta previa L specified as w/o hemorrhage, third trimester 06/16/2017 Arelis Mackaynda W O44.43 Low lying placenta L NOS or w/out hemorrhage, third trimester 06/16/2017 Darell Mackaya W Z3A.32 32 weeks gestation L of Procedures Code Description Performed By Performed On 02/01/2017 71274 Ultrasound, Nuchal Translucency Measurement 03/25/2017 73785 Ultrasnd exam of preg uterus, compl 06/16/2017 90519 Ultrasnd exam, preg uterus, limited Results Encounters ACCT No. Visit Discharge Status Pt. Type Provider Facility Loc./Unit Complaint Date/Time [id number] 03/24/2017 03/24/2017 [facility] Outpatient JOSEPH Ferreira [facility] [id number] 11:35:00 23:59:59 ANDREA [facility] [id number] 11/30/2013 11/30/2013 DIS Emergency Jhon RICO MD ED [id number] 17:07:00 20:00:00 [facility] [id number] 01/04/2013 Document 5154 09:51:00 Registratio n [id number] 07/21/2017 07/21/2017 [facility] Outpatient Thompson, 16:44:00 23:59:59 Bianka L [id number] 07/20/2017 07/20/2017 [facility] Outpatient Thompson, 10:45:00 23:59:59 Bianka L [id number] 07/15/2017 07/15/2017 [facility] Outpatient Thompson, 14:00:00 23:59:59 Bianka L [id number] 06/30/2017 06/30/2017 [facility] Outpatient Thompson, 09:00:00 23:59:59 Bianka L [id number] 06/16/2017 06/16/2017 [facility] Outpatient Thompson, 10:25:00 23:59:59 Bianka L [id number] 06/16/2017 06/16/2017 [facility] Outpatient Thompson, 10:15:00 23:59:59 Bianka L [id number] 06/03/2017 06/03/2017 [facility] Outpatient Thompson, 14:40:00 23:59:59 Bianka L [id number] 05/20/2017 05/20/2017 [facility] Outpatient Thompson, 16:15:00 23:59:59 Bianka L [id number] 04/26/2017 04/26/2017 [facility] Outpatient Thompson, 09:32:00 23:59:59 Bianka L [id number] 04/22/2017 04/22/2017 [facility] Outpatient Thompson, 14:00:00 23:59:59 Bianka L [id number] 03/25/2017 03/25/2017 [facility] Outpatient Thompson, 14:40:00 23:59:59 Bianka L [id number] 03/25/2017 03/25/2017 [facility] Outpatient Thompson, 14:15:00 23:59:59 Bianka L [id number] 03/05/2017 03/05/2017 [facility] Outpatient Thompson, 13:25:00 23:59:59 Bianka L [id number] 02/01/2017 02/01/2017 [facility] Outpatient Thompson, 10:40:00 23:59:59 Bianka L [id number] 02/01/2017 02/01/2017 [facility] Outpatient Thompson, 10:15:00 23:59:59 Bianka L [id number] 01/07/2017 01/07/2017 [facility] Outpatient Thompson, 15:15:00 23:59:59 Bianak L [id number] 03/09/2016 03/09/2016 [facility] Outpatient Welch, 08:36:00 23:59:59 Oralia Avitia [id number] 03/05/2016 03/05/2016 [facility] Outpatient Welch, 09:45:00 23:59:59 Oralia Avitia
[2017-08-06] MEDS ORDERED: DOCUSATE CALCIUM 240 MG CAPSULE PO SCH (09:00)
[2017-08-06] MEDS ORDERED: PRENATAL VITAMIN TABLET PO SCH (09:00)
--- NOTE | 2017-08-06 12:05 | OB/GYN Progress Note ---
OB-PP Progress Note - General PPD1 Maternal Group B Strep: Negative Maternal blood type: A+ Maternal Rubella Status: Immune - Subjective Date: 08/06/17 Lochia: Minimal Pain: contolled Voiding: voiding Nausea or Vomiting Present: No - Objective Vital Signs: Last Vital Signs Temp 98.0 F 08/06/17 05:30 Pulse 81 08/06/17 05:30 Resp 16 08/06/17 05:30 BP 109/64 08/06/17 05:30 Pulse Ox 98 08/06/17 05:30 Urine Output: good Abdomen: fundus firm, non-tender Extremities: non-tender Edema: none - Assessment Assessment: SP, - Plan Plan: routine care, discharge home
--- NOTE | 2017-08-06 12:07 | Discharge Instructions ---
Discharge Plan - Med Rec/Dispo Prescriptions: New Hydrocodone/APAP 5/325 [[place] 5/325] 1 - 2 tab PO Q4H PRN #20 tab PRN Reason: Pain Ibuprofen [Motrin] 800 mg PO Q8H #30 tab Docusate Calcium [Surfak] 240 mg PO DAILY #30 cap No Action Vit No.130/Iron/Folic [ Tablet] 1 tab PO DAILY #0 tab Iron - Disposition 01 Discharged Home, Self-Care
[2017-08-06 18:34] VITALS: BP 100/58; PULSE 95; TEMP 97.6
== END 2017-08-06 18:42 | disposition home or self-care (01) | DRG 775 ==
LOC: MC 06:52
PROVIDERS: ADMIT Obstetrics & Gynecology; ATTEND Obstetrics & Gynecology